=== PATIENT | female | born 1955 | race African-American/Black ===

== ENCOUNTER → 2016-12-26 | Outpatient (CLI) | payer OTHER | END | disposition home or self-care (01) | LOC: CFH 07:40 | PROVIDERS: ATTEND Physical Medicine & Rehabilitation Pain Medicine | DX: M51.27 Other intervertebral disc displacement, lumbosacral region (principal); M48.07 Spinal stenosis, lumbosacral region; M47.897 Other spondylosis, lumbosacral region | CPT/HCPCS: 72148 ==